=== PATIENT | female | born 1955 | race Caucasian/White ===

== ENCOUNTER → 2021-11-22 10:02 | Outpatient (CLI) | payer MEDICARE, SELFPAY ==
--- NOTE | ~2021-11-22 | MR_ITS ---
EXAMINATION: MR lumbar spine wo con DATE: 11/22/2021 11:14 INDICATION: Lumbar radiculopathy. TECHNIQUE: Magnetic resonance imaging (MRI) of the lumbar spine was performed without intravenous con trast. Sequences included sagittal T2-weighted FSE, sagittal T2-weighted FS FSE, sagittal T1-weighted FSE, and axial T2-weighted FSE. COMPARISON: None FINDINGS: There is 3 degrees levocurvature of lumbar spine. There are chronic bilateral L5 pars defec ts. There is 10 mm anterolisthesis of L5 on S1. There is mild chronic anterior wedging of T12 vertebr al body. There is mildly decreased disc height at T11-T12, L2-L3, and L3-L4 and severely decreased di sc height at L5-S1. The distal spinal cord signal intensity is normal. The conus medullaris is at L1- L2. The following disc levels are specifically discussed: L1-L2: The disc does not extend beyond the endplate margin. There is moderate bilateral facet joint o steoarthritis. There is no neural foraminal stenosis. There is no central canal stenosis. L2-L3: The disc is bulging and has an annular fissure. There is mild bilateral facet joint osteoarthr itis. There is mild bilateral neural foraminal stenosis. There is mild central canal stenosis. L3-L4: The disc is bulging. There is mild bilateral facet joint osteoarthritis. There is mild bilater al neural foraminal stenosis. There is mild central canal stenosis. L4-L5: There is a right foraminal protrusion. There is mild bilateral facet joint osteoarthritis. The re is mild right neural foraminal stenosis. There is no central canal stenosis. L5-S1: The disc does not extend beyond the endplate margin. There is severe bilateral facet joint ost eoarthritis. There is moderate bilateral neural foraminal stenosis. There is no central canal stenosi s. IMPRESSION: 1. Severe lower lumbar spondylosis. 2. Chronic bilateral L5 pars defects with grade 2 anterolisthesis of L5 on S1. Reviewed, dictated and finalized at location A.
== END ==
PROVIDERS: PCP Internal Medicine; Visit Provider Nurse Practitioner Family
DX: M47.26 Other spondylosis with radiculopathy, lumbar region (principal)
CPT/HCPCS: 72148

== ENCOUNTER → 2021-11-22 10:14 | Outpatient (CLI) | payer MEDICARE, SELFPAY ==
--- NOTE | ~2021-11-22 | MR_ITS ---
EXAMINATION: MR abdomen wo/w con INDICATION: Left kidney mass TECHNIQUE: Coronal SSFSE ARC, WATER:coronal LAVA-FLEX, Coronal 2D FIESTA FatSat, Axial SSFSE BH ARC, Axial 3D DualEcho BH, Axial SSFSE-IR, Axial DWI b=500, Axial 2D FIESTA FatSat, pre and dynamic postco ntrast Axial LAVA ARC, postcontrast Coronal In and Opposed phase LAVA FLEX COMPARISON: 08/28/2018 CONTRAST: Multihance, 20 cc FINDINGS: There is a 2.2 cm T1 hyperintense, mildly T2 hyperintense mass in the left kidney upper camilo e which does not demonstrate enhancement after contrast administration. Additional smaller simple cys ts of the kidneys measure up to 7 mm on the left. The liver and spleen are unremarkable. The gallblad greg is surgically absent. There is mild enlargement of the common bile duct and central intrahepatic ducts which is likely due to post cholecystectomy state. The right adrenal gland is unremarkable. The re is a 1.2 cm mass of the left adrenal gland with loss of signal intensity on opposed phase imaging, consistent with an adenoma. 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 There are no pathologically enlarged abdominal lymph nodes. No dilated loops of bowel are evident. No abnormal enhancement is pre sent after contrast administration. IMPRESSION: 1. Mild enlargement of a left kidney upper pole mass with signal characteristics consistent with a pr oteinaceous cyst. Reviewed, dictated and finalized at location A. IMPRESSION: 1. Mild enlargement of a left kidney upper pole mass with signal characteristic s consistent with a proteinaceous cyst.
== END ==
PROVIDERS: PCP Internal Medicine
DX: N28.9 Disorder of kidney and ureter, unspecified (principal)
CPT/HCPCS: 74183; A9577